=== PATIENT | male | born 1975 | race Hispanic/Latino ===

== ENCOUNTER 2018-05-04 12:18 | Emergency (ER) | payer OTHER ==
--- NOTE | 2018-05-04 12:44 | EDPHYS ---
Physician Documentation [facility] Name: Edwin Hernández Age: 43 yrs Sex: Male : 1975 Arrival Date: 05/04/2018 Time: 12:21 Bed Treatment Private MD: None, None ED Physician Gunnar Junior HPI: 05/04 12:42 This 43 yrs old Male presents to ER via Ambulatory with complaints of Flu snw Symptoms. 12:42 The patient or guardian reports airway noise, cough, flu symptoms, myalgias, no snw appetite. Onset: The symptoms/episode began/occurred suddenly, 3 day(s) ago, and became worse and became persistent. Associated signs and symptoms: Pertinent positives: sore throat, cough. Severity of symptoms: At their worst the symptoms were moderate. It is unknown whether or not the patient has had similar symptoms in the past. The patient has not recently seen a physician. Historical: - Allergies: 12:33 No Known Allergies; ph - Home Meds: 12:33 None [Active]; ph - PMHx: 12:33 None; ph - PSHx: 12:33 Kidney stents; ph - Immunization history:: Adult Immunizations unknown. - Social history:: Smoking status: Patient/guardian denies using tobacco. - Ebola Screening: : No symptoms or risks identified at this time. ROS: 12:39 Constitutional: Negative for fever, chills, and weight loss,+ fatigue and malaise Eyes: snw Negative for injury, pain, redness, and discharge, ENT: Negative for injury, pain, and discharge, Neck: Negative for injury, pain, and swelling, Cardiovascular: Negative for chest pain, palpitations, and edema, Abdomen/GI: Negative for abdominal pain, nausea, vomiting, diarrhea, and constipation, Back: Negative for injury and pain, : Negative for injury, bleeding, discharge, and swelling, MS/Extremity: Negative for injury and deformity, Skin: Negative for injury, rash, and discoloration, Neuro: Negative for headache, weakness, numbness, tingling, and seizure. 12:39 Respiratory: Positive for cough, with yellow sputum. Exam: 12:39 Constitutional: This is a well developed, well nourished patient who is awake, alert, snw and in no acute distress. Head/Face: Normocephalic, atraumatic. Eyes: Pupils equal round and reactive to light, extra-ocular motions intact. Lids and lashes normal. Conjunctiva and sclera are non-icteric and not injected. Cornea within normal limits. Periorbital areas with no swelling, redness, or edema. 12:39 Neck: Trachea midline, no thyromegaly or masses palpated, and no cervical lymphadenopathy. Supple, full range of motion without nuchal rigidity, or vertebral point tenderness. No Meningismus. Chest/axilla: Normal chest wall appearance and motion. Nontender with no deformity. No lesions are appreciated. Cardiovascular: Regular rate and rhythm with a normal S1 and S2. No gallops, murmurs, or rubs. Normal PMI, no JVD. No pulse deficits. 12:39 Abdomen/GI: Soft, non-tender, with normal bowel sounds. No distension or tympany. No guarding or rebound. No evidence of tenderness throughout. Back: No spinal tenderness. No costovertebral tenderness. Full range of motion. Skin: Warm, dry with normal turgor. Normal color with no rashes, no lesions, and no evidence of cellulitis. MS/ Extremity: Pulses equal, no cyanosis. Neurovascular intact. Full, normal range of motion. Neuro: Awake and alert, GCS 15, oriented to person, place, time, and situation. Cranial nerves II-XII grossly intact. Motor strength 5/5 in all extremities. Sensory grossly intact. Cerebellar exam normal. Normal gait. 12:39 ENT: TM's: are normal, large amt cerumen to right, Nose: is normal, Posterior pharynx: erythema, that is moderate, Voice: is normal. 12:39 Respiratory: the patient does not display signs of respiratory distress, Respirations: normal, Breath sounds: wheezing: expiratory is heard diffusely. Vital Signs: 12:33 BP 134 / 98; Pulse 87; Resp 16; Temp 97.4(TE); Pulse Ox 98% on R/A; Weight 97.52 kg; ph Height 5 ft. 10 in. (177.80 cm); 12:33 Body Mass Index 30.85 (97.52 kg, 177.80 cm) ph MDM: 12:27 Patient medically screened. snw 12:44 Data reviewed: vital signs, nurses notes. Data interpreted: Pulse oximetry: on room air snw is 98 %. Interpretation: normal. Counseling: I had a detailed discussion with the patient and/or guardian regarding: the historical points, exam findings, and any diagnostic results supporting the discharge/admit diagnosis, the presence of at least one elevated blood pressure reading (>120/80) during this emergency department visit, the need for outpatient follow up, to return to the emergency department if symptoms worsen or persist or if there are any questions or concerns that arise at home. Special discussion: I have referred the patient to see his PCP for further evaluation of high blood pressure. Based on the history and exam findings, there is no indication for further emergent testing or inpatient evaluation. I discussed with the patient/guardian the need to see the primary care provider for further evaluation of the symptoms. Administered Medications: 12:53 Drug: Decadron 8 mg Route: PO; ss 13:22 Follow up: Response: No adverse reaction ss 12:53 Drug: Zithromax 500 mg Route: PO; ss 13:22 Follow up: Response: No adverse reaction ss 12:54 Drug: Albuterol - atroVENT (3:1) (2.5 mg - 0.5 mg) 3 ml Route: Nebulizer; ss 13:22 Follow up: Response: No adverse reaction ss Disposition: 15:19 Co-signature as Attending Physician, Gunnar Junior MD I agree with the assessment and latha plan of care. Disposition: 05/04/18 12:43 Discharged to Home. Impression: Pneumonia, unspecified organism. - Condition is Stable. - Discharge Instructions: Community-Acquired Pneumonia, Adult, [id number], Cough, Adult. - Prescriptions for Zyrtec 10 mg Oral Tablet - take 1 tablet by ORAL route once daily As needed; 20 tablet. Tessalon Perles 100 mg Oral Capsule - take 1 capsule by ORAL route every 8 hours As needed; 15 capsule. Albuterol Sulfate 90 mcg/actuation - inhale 1-2 puff by INHALATION route every 4-6 hours; 1 Inhaler. Zithromax 500 mg Oral Tablet - take 1 tablet by ORAL route once daily for 5 days; 5 tablet. - Work release form, Medication Reconciliation Form, Thank You Letter, Antibiotic Education, Prescription Opioid Use form. - Follow up: Private Physician; When: 2 - 3 days; Reason: Recheck today's complaints, Continuance of care, Re-evaluation by your physician. Follow up: Emergency Department; When: As needed; Reason: Worsening of condition. Signatures: Gunnar Junior MD MD cha Therrien, Shelly, ROSARIO-C CUST[employer]S AND BORDER PROTECTION OFFICER-Chinmayw Juju Chua, BECCA RN ss Kayla Hand RN RN ph Corrections: (The following items were deleted from the chart) 13:30 12:43 05/04/2018 12:43 Discharged to Home. Impression: Pneumonia, unspecified organism. ss Condition is Stable. Forms are Medication Reconciliation Form, Thank You Letter, Antibiotic Education, Prescription Opioid Use. Follow up: Private Physician; When: 2 - 3 days; Reason: Recheck today's complaints, Continuance of care, Re-evaluation by your physician. Follow up: Emergency Department; When: As needed; Reason: Worsening of condition. snw
--- NOTE | 2018-05-04 12:44 | ER ---
Nurse's Notes [facility] Name: Edwin Hernández Age: 43 yrs Sex: Male : 1975 Arrival Date: 05/04/2018 Time: 12:21 Bed Treatment Private MD: None, None Diagnosis: Pneumonia, unspecified organism Presentation: 05/04 12:32 Presenting complaint: Patient states: C/O nasal congestion, sore throat, fever and ph productive cough x 2 days, denies N/V/D. Transition of care: patient was not received from another setting of care. Onset of symptoms was May 04, 2018. Risk Assessment: Do you want to hurt yourself or someone else? Patient reports no desire to harm self or others. Initial Sepsis Screen: Does the patient meet any 2 criteria? No. Patient's initial sepsis screen is negative. Does the patient have a suspected source of infection? No. Patient's initial sepsis screen is negative. Care prior to arrival: None. 12:32 Method Of Arrival: Ambulatory ph 12:32 Acuity: SAMUEL 4 ph Triage Assessment: 12:34 General: Appears in no apparent distress. comfortable, well groomed, Behavior is calm, ph cooperative, appropriate for age, Reports chills for fever for 12-24 hours. Pain: Denies pain. EENT: Reports nasal congestion nasal discharge pain when swallowing. Neuro: Level of Consciousness is awake, alert, obeys commands, Oriented to person, place, time, situation. Cardiovascular: Capillary refill < 3 seconds in bilateral fingers Patient's skin is warm and dry. Respiratory: Reports cough that is productive, Airway is patent Respiratory effort is even, unlabored, Respiratory pattern is regular, symmetrical, Breath sounds are clear bilaterally. Breath sounds are coarse in mediastinum Denies shortness of breath. GI: No signs and/or symptoms were reported involving the gastrointestinal system. Patient currently denies diarrhea, nausea, vomiting. Derm: Skin is intact, is healthy with good turgor, Skin is pink, warm \T\ dry. Musculoskeletal: Circulation, motion, and sensation intact. Range of motion: intact in all extremities. Historical: - Allergies: 12:33 No Known Allergies; ph - Home Meds: 12:33 None [Active]; ph - PMHx: 12:33 None; ph - PSHx: 12:33 Kidney stents; ph - Immunization history:: Adult Immunizations unknown. - Social history:: Smoking status: Patient/guardian denies using tobacco. - Ebola Screening: : No symptoms or risks identified at this time. Screenin:34 Abuse screen: Denies threats or abuse. Denies injuries from another. Nutritional ph screening: No deficits noted. Tuberculosis screening: No symptoms or risk factors identified. Fall Risk None identified. Assessment: 12:35 General: NO change from previously documented assessment, see triage note. ph 13:22 Reassessment: Patient appears in no apparent distress at this time. Patient and/or ss family updated on plan of care and expected duration. Pain level reassessed. Patient is alert, oriented x 3, equal unlabored respirations, skin warm/dry/pink. Patient states feeling better. Patient states symptoms have improved. Vital Signs: 12:33 BP 134 / 98; Pulse 87; Resp 16; Temp 97.4(TE); Pulse Ox 98% on R/A; Weight 97.52 kg; ph Height 5 ft. 10 in. (177.80 cm); 12:33 Body Mass Index 30.85 (97.52 kg, 177.80 cm) ph ED Course: 12:21 Patient arrived in ED. sb2 12:21 None, None is Private Physician. sb2 12:27 Luba Verduzco [facility]C [facility]. snw 12:27 Gunnar Junior MD is Attending Physician. snw 12:31 Kayla Hand, BECCA is Primary Nurse. ph 12:33 Triage completed. ph 12:34 Arm band placed on. ph 12:34 Patient has correct armband on for positive identification. Bed in low position. Call ph light in reach. Side rails up X 1. 12:54 No provider procedures requiring assistance completed. Patient did not have IV access ss during this emergency room visit. Administered Medications: 12:53 Drug: Decadron 8 mg Route: PO; ss 13:22 Follow up: Response: No adverse reaction ss 12:53 Drug: Zithromax 500 mg Route: PO; ss 13:22 Follow up: Response: No adverse reaction ss 12:54 Drug: Albuterol - atroVENT (3:1) (2.5 mg - 0.5 mg) 3 ml Route: Nebulizer; ss 13:22 Follow up: Response: No adverse reaction ss Outcome: 12:43 Discharge ordered by MD. espinoza 13:29 Discharged to home ambulatory. ss 13:29 Condition: improved 13:29 Discharge instructions given to patient, Instructed on discharge instructions, follow up and referral plans. medication usage, Demonstrated understanding of instructions, follow-up care, medications, Prescriptions given X 4. 13:30 Patient left the ED. Signatures: Luba Verduzco, TRANSIT BUS OPERATOR-C TRANSIT BUS OPERATOR-Csnw Juju Chua RN RN Kayla Hand RN RN Raysa Arrington sb2 Corrections: (The following items were deleted from the chart) 12:43 12:34 Respiratory: Reports cough that is productive, Airway is patent Respiratory ph effort is even, unlabored, Respiratory pattern is regular, symmetrical, Breath sounds are clear bilaterally. Denies shortness of breath ph
[2018-05-04] MEDS ORDERED: ALBUTEROL 2.5 MG/3 ML NEB SOL ONE (12:47)
[2018-05-04] MEDS ORDERED: DEXAMETHASONE 4 MG TAB ONE (12:47)
[2018-05-04] MEDS ORDERED: AZITHROMYCIN 250 MG TAB ONE (12:47)
[2018-05-04] MEDS ORDERED: IPRATROPIUM BROM 0.5MG/2.5ML ONE (12:48)
== END 2018-05-04 13:30 | disposition home or self-care (01) ==
LOC: ER 12:18
DX: J18.9 Pneumonia, unspecified organism (principal)
CPT/HCPCS: 94640; 99284

== ENCOUNTER 2020-01-03 14:24 | Emergency (ER) | payer BC, OTHER ==
--- NOTE | 2020-01-03 14:45 | ER ---
Nurse's Notes [facility] [place], [place] Name: Edwin Hernández Age: 44 yrs Sex: Male : 1975 Arrival Date: 01/03/2020 Time: 14:29 Bed 14 Private MD: Diagnosis: Encounter for general adult medical examination without abnormal findings Presentation: 01/02 14:33 Chief complaint: Patient states: "I was absent at work last week and I went back today aa5 and they said I need a work excuse to go back". Pt denies any symptoms. Coronavirus screen: Patient denies fever greater than 100.4F, cough, shortness of breath, or difficulty breathing. 14:33 Acuity: SAMUEL 5 aa5 14:33 Method Of Arrival: Ambulatory aa5 14:33 Ebola Screen: Patient negative for fever greater than or equal to 101.5 degrees aa5 Fahrenheit, and additional compatible Ebola Virus Disease symptoms. 14:33 Initial Sepsis Screen: Does the patient meet any 2 criteria? No. Patient's initial aa5 sepsis screen is negative. Does the patient have a suspected source of infection? No. Patient's initial sepsis screen is negative. Risk Assessment: Do you want to hurt yourself or someone else? Patient reports no desire to harm self or others. MSE: 14:45 Patient does not have an emergent medical condition. ph 15:09 Patient does not have an emergent medical condition. Patient left without treatment. ph Historical: - Allergies: 14:43 No Known Allergies; ph - Home Meds: 14:43 None [Active]; ph - PMHx: 14:43 None; ph - PSHx: 14:43 Kidney stents; ph - Immunization history:: Adult Immunizations unknown. - Social history:: Smoking status: Patient reports the use of cigarette tobacco products, denies chronic smoking, but will smoke occasionally. Screenin:45 Abuse screen: Denies threats or abuse. Denies injuries from another. Nutritional ph screening: No deficits noted. Tuberculosis screening: No symptoms or risk factors identified. Fall Risk None identified. Assessment: 14:44 General: Appears in no apparent distress. comfortable, Behavior is calm, cooperative, ph appropriate for age, Denies fever, feeling ill. Pain: Denies pain. Neuro: Level of Consciousness is awake, alert, obeys commands, Oriented to person, place, time, situation. Cardiovascular: Capillary refill < 3 seconds in bilateral fingers Patient's skin is warm and dry. Respiratory: Airway is patent Respiratory effort is even, unlabored, Denies cough, shortness of breath. GI: No signs and/or symptoms were reported involving the gastrointestinal system. Derm: Skin is intact, is healthy with good turgor, Skin is pink, warm \\T\\ dry. Vital Signs: 14:43 BP 153 / 102; Pulse 75; Resp 18; Temp 98.5; Pulse Ox 100% on R/A; Weight 106.59 kg; ph Height 5 ft. 11 in. (180.34 cm); Pain 0/10; 14:43 Body Mass Index 32.78 (106.59 kg, 180.34 cm) ph ED Course: 14:29 Patient arrived in ED. am2 14:33 Arm band placed on Patient placed in an exam room, on a stretcher. aa5 14:34 Pavel Santos PA is PHCP. jr 14:34 Sheldon De Leon DO is Attending Physician. jr8 14:36 Triage completed. aa5 14:43 Kayla Hand, BECCA is Primary Nurse. ph 14:45 Patient has correct armband on for positive identification. Bed in low position. Call ph light in reach. Side rails up X 1. Pulse ox on. NIBP on. Door closed. Noise minimized. 15:11 No provider procedures requiring assistance completed. Patient did not have IV access ph during this emergency room visit. Administered Medications: No medications were administered Outcome: 14:44 Discharge ordered by . Leo 15:10 Medical screen evaluation completed per provider. Patient declined treatment. ph 15:10 Condition: good 15:10 Following a medical screening exam, the patient was provided information regarding alternative care sites and resources available per registration personnel. 15:11 Patient left the ED. ph Signatures: Lou Gracia RN RN Pavel Fairchild PA PA Kayla Reyes RN RN ph Moreno, Amanda am2
--- NOTE | 2020-01-03 14:45 | EDPHYS ---
Physician Documentation [facility] Name: Edwin Hernández Age: 44 yrs Sex: Male : 1975 Arrival Date: 01/03/2020 Time: 14:29 Bed 14 Private MD: ED Physician Sheldon De Leon HPI: 01/02 14:51 This 44 yrs old Male presents to ER via Ambulatory with complaints of Medical jr8 Clearance. 14:51 Patient was ill over 2 weeks ago. Has been tested daily at facility for 12 days with jr8 temperature. All negative and has been without any symptoms for all 12 days. Stated that work wanted him to have release still . Severity of symptoms: At their worst the symptoms were very mild in the emergency department the symptoms have resolved. The patient has not experienced similar symptoms in the past. The patient has not recently seen a physician. Historical: - Allergies: 14:43 No Known Allergies; ph - Home Meds: 14:43 None [Active]; ph - PMHx: 14:43 None; ph - PSHx: 14:43 Kidney stents; ph - Immunization history:: Adult Immunizations unknown. - Social history:: Smoking status: Patient reports the use of cigarette tobacco products, denies chronic smoking, but will smoke occasionally. ROS: 14:51 Eyes: Negative for injury, pain, redness, and discharge, ENT: Negative for injury, jr8 pain, and discharge, Neck: Negative for injury, pain, and swelling, Cardiovascular: Negative for chest pain, palpitations, and edema, Respiratory: Negative for shortness of breath, cough, wheezing, and pleuritic chest pain, Abdomen/GI: Negative for abdominal pain, nausea, vomiting, diarrhea, and constipation, Back: Negative for injury and pain, MS/Extremity: Negative for injury and deformity, Skin: Negative for injury, rash, and discoloration, Neuro: Negative for headache, weakness, numbness, tingling, and seizure. Exam: 14:51 Eyes: Pupils equal round and reactive to light, extra-ocular motions intact. Lids and jr8 lashes normal. Conjunctiva and sclera are non-icteric and not injected. Cornea within normal limits. Periorbital areas with no swelling, redness, or edema. ENT: Nares patent. No nasal discharge, no septal abnormalities noted. Tympanic membranes are normal and external auditory canals are clear. Oropharynx with no redness, swelling, or masses, exudates, or evidence of obstruction, uvula midline. Mucous membranes moist. Neck: Trachea midline, no thyromegaly or masses palpated, and no cervical lymphadenopathy. Supple, full range of motion without nuchal rigidity, or vertebral point tenderness. No Meningismus. Cardiovascular: Regular rate and rhythm with a normal S1 and S2. No gallops, murmurs, or rubs. Normal PMI, no JVD. No pulse deficits. Respiratory: Lungs have equal breath sounds bilaterally, clear to auscultation and percussion. No rales, rhonchi or wheezes noted. No increased work of breathing, no retractions or nasal flaring. Abdomen/GI: Soft, non-tender, with normal bowel sounds. No distension or tympany. No guarding or rebound. No evidence of tenderness throughout. Back: No spinal tenderness. No costovertebral tenderness. Full range of motion. Skin: Warm, dry with normal turgor. Normal color with no rashes, no lesions, and no evidence of cellulitis. MS/ Extremity: Pulses equal, no cyanosis. Neurovascular intact. Full, normal range of motion. Neuro: Awake and alert, GCS 15, oriented to person, place, time, and situation. Cranial nerves II-XII grossly intact. Motor strength 5/5 in all extremities. Sensory grossly intact. Cerebellar exam normal. Normal gait. Vital Signs: 14:43 BP 153 / 102; Pulse 75; Resp 18; Temp 98.5; Pulse Ox 100% on R/A; Weight 106.59 kg; ph Height 5 ft. 11 in. (180.34 cm); Pain 0/10; 14:43 Body Mass Index 32.78 (106.59 kg, 180.34 cm) ph MDM: 14:41 Patient medically screened. jr8 14:43 Data reviewed: vital signs, nurses notes. Data interpreted: Pulse oximetry: on room air jr8 is 100 %. Interpretation: normal. Medical screen evaluation completed. EMTALA emergency medical condition absent. Administered Medications: No medications were administered Disposition: 14:43 Encounter for work note. jr8 15:21 Co-signature as Attending Physician, Sheldon De Leon DO I agree with the assessment and ms3 plan of care. Attestation: The patient's history, exam findings, diagnostics, and a summary of any interventions or procedures was reviewed in detail with Pavel PLEITEZ. Disposition: 01/03/20 14:44 Discharged to Home. Impression: Encounter for general adult medical examination without abnormal findings. - Condition is Stable. - Work release form, Medication Reconciliation Form, Thank You Letter, Antibiotic Education, Prescription Opioid Use form. - Follow up: Private Physician; When: As needed; Reason: Recheck today's complaints, Continuance of care, Re-evaluation by your physician. - Problem is new. - Symptoms are unchanged. Signatures: Pavel Santos PA PA jr8 Kayla Hand, RN RN ph Sheldon De Leon DO DO ms3 Corrections: (The following items were deleted from the chart) 15:11 14:44 01/03/2020 14:44 Discharged to Home. Impression: Encounter for general adult ph medical examination without abnormal findings. Condition is Stable. Forms are Medication Reconciliation Form, Thank You Letter, Antibiotic Education, Prescription Opioid Use. Follow up: Private Physician; When: As needed; Reason: Recheck today's complaints, Continuance of care, Re-evaluation by your physician. Problem is new. Symptoms are unchanged. jr8
[2020-01-03 15:20] VITALS: BP 153/102; TEMP 98.5; O2SAT 100
== END 2020-01-03 15:11 | disposition home or self-care (01) ==
LOC: ER 14:24
DX: Z00.00 Encounter for general adult medical examination without abnormal findings (principal)
CPT/HCPCS: 99282